=== PATIENT | female | born 1945 | race Caucasian/White ===

== ENCOUNTER 2017-08-09 08:02 | Outpatient (CLI) | payer MEDICARE ==
--- NOTE | 2017-08-09 15:56 | NM ---
NUCLEAR MEDICINE [facility] BRAIN: 08/09/17 HISTORY: 71-year-old female with tremor. TECHNIQUE: 130 mg of potassium iodide injected one hour prior to Ioflupane injection, for thyroid blocking. Nex t, 5.0 mCi I-123 of Ioflupane injected IV. Three hour delayed axial SPECT images obtained. FINDINGS: There is bilaterally symmetrical uptake at the striatum, in both the caudate nuclei and putamen, in a normal pattern. IMPRESSION: Normal scan. Negative for Parkinson disease. POS: [facility]
== END 2017-08-09 08:03 | disposition home or self-care (01) ==
LOC: NM 08:02
PROVIDERS: ATTEND Nurse Practitioner
DX: R25.1 Tremor, unspecified (principal)
CPT/HCPCS: 78607; A9584

== ENCOUNTER 2019-08-07 07:37 | Outpatient (CLI) | payer MEDICARE ==
--- NOTE | 2019-08-07 09:20 | MRI ---
MRI CERVICAL SPINE: DATE: 08/07/2019. COMPARISON: 10/24/2017. HISTORY: Balance problem, uncontrollable right leg twitching. TECHNIQUE: Multiplanar multisequence MR imaging of the cervical spine provided without contrast. FINDINGS: There is mild stable degenerative change at the atlantoaxial interspace. No significant anterolisthesis or retrolisthesis is seen. There is no prevertebral soft tissue swelli ng. C2-3: Mild disc space narrowing, disc desiccation, and disc bulge present. No significant central can al stenosis. There is facet and uncovertebral osteophyte formation on the left, causing mild/moderate left neural foraminal stenosis, new when compared to the prior exam. C3-4: There is disc space narrowing and disc desiccation. Anterior osteophyte formation. Mild disc bu lge. Small left foraminal and left paracentral disc protrusion. Mild central canal stenosis. Superimposed left facet and uncovertebral osteophyte formation. There is associated moderate/severe l eft neural foraminal stenosis, similar when compared to prior examination. Persistent mild right neural foraminal stenosis. C4-5: There is disc space narrowing, disc desiccation, and disc bulge present with effacement of the ventral thecal sac and stable mild/moderate central canal stenosis. Bilateral facet and uncovertebral osteophyte formation noted, left greater than right. Mild right and moderate left neura l foraminal stenosis. C5-6: There is disc space narrowing with disc desiccation and mild stable disc bulge partially effaci ng the ventral thecal sac and causing a mild degree of central canal stenosis. Bilateral facet and uncovertebral osteophyte formation noted with moderate left and mild right neural foraminal stenosis. C6-7: There is disc space narrowing with degenerative endplate change and mild disc bulge partially e ffacing the ventral thecal sac with associated moderate central canal stenosis, similar when compared to prior imaging. Bilateral facet and uncovertebral osteophyte formation noted, left greater than right. Mild bilateral neural foraminal stenosis, left greater than right. C7-T1: No significant central canal or neural foraminal stenosis. No focal area of abnormal signal intensity is identified within the cervical cord. IMPRESSION: Multilevel cervical spine degenerative change as described above. Transcribed Date/Time: 08/07/2019 9:56 AM
--- NOTE | 2019-08-07 09:36 | MRI ---
MRI THORACIC SPINE WITHOUT CONTRAST: DATE: 08/07/2019. COMPARISON: None. HISTORY: Right leg twitching, balance problems. TECHNIQUE: Multiplanar multisequence MR imaging of the thoracic spine is obtained without contrast. FINDINGS: The sagittal STIR imaging demonstrates no focal area of osseous marrow edema. No anterolisthesis or retrolisthesis is evident within the thoracic spine. No significant central canal or neural foraminal stenosis is present at any level within the thoracic spine. There is a very small right paracentral disc protrusion at T4-5 and at T5-6. There is a mild degree of disc bulge at T6-7 causing no central canal stenosis. Small central disc protrusion present at the T8-9 level with no associated central canal stenosis. At the T12-L1 level there is a small right paracentral disc protrusion partially effacing the ventral thecal sac. There is a small caliber thoracic cord syrinx present. It is seen at the T5-6 level through the T8-9 level and measures up to approximately 1-2 mm in transverse dimension. No suspicious osseous marrow signal abnormality. IMPRESSION: Thoracic spine degenerative change as detailed above. Small caliber thoracic cord syrinx as detailed above. As a conservative measure, postcontrast imaging of the thoracic spine is suggested. Transcribed Date/Time: 08/07/2019 9:46 AM
--- NOTE | 2019-08-07 10:09 | MRI ---
MRI LUMBAR SPINE WITH AND WITHOUT CONTRAST: DATE: 08/07/2019. COMPARISON: 03/13/2017. HISTORY: Right leg twitching for 2 years, balance problems. TECHNIQUE: Multiplanar multisequence MR imaging of the lumbar spine is obtained with and without contrast. FINDINGS: The sagittal STIR imaging demonstrates left lateral edematous degenerative endplate change at the lum bosacral junction. No abnormal STIR signal seen within the lumbar spine to suggest a fracture. There is extensive postoperative change at the L3, L4, and L5 levels. No significant anterolisthesis or retrolisthesis is seen within the lumbar spine. On the basis of 5 lumbar type vertebral bodies, the conus medullaris terminates at the L1-2 level. T12-L1: There is a central/right paracentral disc herniation with partial effacement of the ventral t hecal sac and mild associated central canal stenosis. No significant neural foraminal stenosis. This small central/right paracentral disc herniation is new when compared to the prior exam. L1-2: Mild bilateral facet hypertrophy. Minimal disc bulge. No significant central canal or neural fo raminal stenosis. L2-3: Disc desiccation, mild disc space narrowing, and vacuum disc formation present. Prominent bilat eral facet hypertrophy, left greater than right. Mild stable central canal stenosis. Stable mild left-sided neural foraminal stenosis. No significant right neural foraminal stenosis. L3-4: There is disc space narrowing, disc desiccation, and mild disc bulge with a small right paracen tral disc protrusion. The patient is status post bilateral laminectomy. No significant central canal stenosis. There is stable bilateral neural foraminal stenosis, mild on the right and moderate o n the left. L4-5: There is disc space narrowing, disc desiccation, and mild disc bulge, unchanged. There is mild central canal stenosis with associated mild right lateral recess stenosis. Bilateral laminectomy. Bilateral facet hypertrophy and hypertrophy of the ligamentum flavum,, left greater than right. Mild right and mild/moderate left neural foraminal stenosis, similar when compared to the prior examination. L5-S1: Significant bilateral facet hypertrophy. There is disc space narrowing disc desiccation and mi ld disc bulge. There is moderate central canal stenosis, slightly worsened when compared to the prior exam. There is stable mild bilateral neural foraminal stenosis. Postcontrast imaging of the lumbar spine demonstrate no abnormal enhancement involving the nerve root s of the cauda equina. There is no significant abnormal enhancement involving the intervertebral discs or the imaged osseous structures. The imaged retroperitoneal structures demonstrate no acute findings. IMPRESSION: Multilevel postoperative and degenerative change within the lumbar spine as detailed above. Transcribed Date/Time: 08/07/2019 10:23 AM
[2019-08-07] MEDS ORDERED: Gadobenate Dimeglumine 529 MG/1 ML (20ML VIAL) ONE (18:07)
== END 2019-08-07 07:38 | disposition home or self-care (01) ==
LOC: TBSIIMAG 07:37
PROVIDERS: ATTEND Physician Assistant Surgical
DX: M48.061 Spinal stenosis, lumbar region without neurogenic claudication (principal); M54.5 Low back pain; R29.818 Other symptoms and signs involving the nervous system; Z98.890 Other specified postprocedural states; M47.816 Spondylosis without myelopathy or radiculopathy, lumbar region; M47.814 Spondylosis without myelopathy or radiculopathy, thoracic region; M47.812 Spondylosis without myelopathy or radiculopathy, cervical region
CPT/HCPCS: 72141; 72146; 72158; 82565; A9577

== ENCOUNTER 2020-03-14 10:38 | Inpatient (IN) | payer MEDICARE ==
[~2020-03-14 10:38] MED LIST: Amiodarone 150 MG/3 ML VIAL ONE; Atropine Sulfate 1 mg/10 ml Syringe ONE; Calcium Chloride 1 GM/10 ML Abboject SYRINGE ONE; DOPamine/D5W 400 mg/250 ml PREMIX ONE; EPINEPHrine 1 MG/10 ML Abboject SYRINGE ONE; Iopamidol 370 76% 100 ML VIAL ONE; Iopamidol 370 76% 50 ML VIAL FS ONE; Sodium Bicarb 50 MEQ/50 ML Abboject 8.4% SYRINGE ONE
[2020-03-14] MEDS ORDERED: Norepinephrine 8 MG/0.9% NS 250 ML ONE (10:55)
[2020-03-14] MEDS ORDERED: Nitroglycerin 100MG/250ML BOT 0 ML ONE (11:23)
[2020-03-14] MEDS ORDERED: Heparin 10,000 UNITS/1 ML VIAL ONE (11:23)
[2020-03-14] MEDS ORDERED: Aspirin 300 MG Suppository ONE ×2 (11:24)
[2020-03-14] MEDS ORDERED: DOPamine 400 MG/D5W 250 ML 250 ML ONE (11:33)
--- NOTE | 2020-03-14 11:54 | RAD ---
CHEST ONE VIEW: HISTORY: CPR. Endotracheal tube. Enteric tube. COMPARISON: None. FINDINGS: The endotracheal tube tip is poorly seen, although it does appear to project over the right mainstem bronchus. Enteric tube tip, gastric antrum. There is opacification of the right upper lobe. IMPRESSION: 1. Enteric tube tip in good position. 2. Endotracheal tube tip not well seen. May reflect over the right mainstem bronchus. 3. Right upper lobe pulmonary edema. Dr. Garcia was notified of the findings via telephone at 11:30 a.m. CODE CR POS: HOME
[2020-03-14] MEDS ORDERED: EPINEPHrine 1 MG/ML AMP ONE (12:06)
[2020-03-14] MEDS ORDERED: Aggrastat 12.5 MG/250 ML 250 ML ONE (12:06)
[2020-03-14] MEDS ORDERED: Amiodarone 150 MG/3 ML VIAL ONE (12:10)
[2020-03-14] MEDS ORDERED: Sodium Bicarbonate 2.5 MEQ/5 ML VIAL ONE ×4 (12:15→12:45)
[2020-03-14] MEDS ORDERED: Adenosine 6 MG/2 ML VIAL ONE (12:15)
[2020-03-14 12:18] LABS: Actual Bicarbonate (HCO3a) 8.4 mEq/L (22-28); Base Excess (BEa) -26.3 mEq/L (-2.0 to +3.0); CO2 Tension 56.6 mmHg (35.0-45.0); Carboxyhemoglobin (COHb) 0.4 gm% (0.0-3.0); Hemoglobin (Hb) 12.2 g/dL (12.0-16.0); pH, Arterial 6.79 (7.35-7.45)
[2020-03-14 12:19] LABS: Analyzer IN Cardio OR; Calcium, Ionized 1.34 mmol/L (1.12-1.30); Puncture Site LINE
[2020-03-14] MEDS ORDERED: TICAGRELOR 90 MG TABLET PO SCH (12:30)
[2020-03-14] MEDS ORDERED: Aggrastat 12.5 MG/250 ML 250 ML IVPB SCH (12:30)
[2020-03-14 12:42] LABS: Actual Bicarbonate (HCO3a) 10.8 mEq/L (22-28); Base Excess (BEa) -21.6 mEq/L (-2.0 to +3.0); CO2 Tension 55.2 mmHg (35.0-45.0); Calcium, Ionized 1.21 mmol/L (1.12-1.30); Carboxyhemoglobin (COHb) 0.7 gm% (0.0-3.0); Hemoglobin (Hb) 11.1 g/dL (12.0-16.0); Potassium - ABG Lab 4.02 mmol/L (3.70-5.30)
[2020-03-14] MEDS ORDERED: Norepinephrine 8 MG/0.9% NS 250 ML IVPB SCH (12:45)
[2020-03-14] MEDS ORDERED: DOPamine 400 MG/D5W 250 ML 250 ML IVPB SCH (12:45)
[2020-03-14] MEDS ORDERED: Amiodarone 450 MG in Dextrose 5% in Water 250 ML IVPB SCH (12:45)
[2020-03-14 13:07] LABS: O2 Tension (PaO2), arterial 54.4 mmHg (> 70.0); pH, Arterial 6.91 (7.35-7.45)
--- NOTE | 2020-03-14 13:07 | HP ---
REASON FOR ADMISSION: Cardiac arrest. HISTORY OF PRESENT ILLNESS: Ms. Zuniga is a 74-year-old black female patient of Dr. Eron Aparicio, who comes to the ER in [place] for mid back pain. She has spinal problems. She thought this was a problem with her neck or with her thoracic spine. EKG was done that showed some changes consistent with this possible ischemia, so a troponin was drawn and it was mildly elevated, so we were called for transfer for further evaluation and care. Transfer was accepted. When the patient was about to be placed in the ambulance, she had what appears to be a PEA arrest. She braided down and eventually arrested. She was coded briefly, so the helicopter was called and summoned instead. She was placed in the helicopter and flown in emergently. She was coded twice in the air. She arrived in the ER here in [place] and she was coded about 4 more times in the ER. Total time between all the arrests was probably about 45 minutes. After return of spontaneous circulation was achieved, an EKG was done that showed big ST elevations on the inferior leads, so Cardiology was called and STEMI pager was activated. Once she was stable, we brought her to the catheterization lab emergently and we placed a temporary pacemaker, and heart catheterization was done and she had an occluded RCA, and drug-eluting stent was placed successfully. She had several episodes of polymorphic VT during her intervention that were successfully treated with defibrillator shock. She was started on the amiodarone drip. She remains on 3 pressors to maintain her blood pressure with a severely reduced EF. Left-sided circulation was intact, LAD and left circumflex. PAST MEDICAL HISTORY: 1. Hypertension. 2. Hyperlipidemia. 3. Sleep apnea, using CPAP. PAST SURGICAL HISTORY: 1. Appendectomy. 2. Thyroidectomy. 3. Lumbar fusion. 4. Hysterectomy. 5. Cholecystectomy. OUTPATIENT MEDICATIONS: 1. Lasix 40 mg a day. 2. Levothyroxine 100 mcg a day. 3. Estradiol. 4. Turmeric curcumin. 5. L-cysteine. 6. Vitamin D3. 7. Aspirin 81 a day. 8. Paroxetine. 9. CoQ10. 10. Multivitamin. ALLERGIES: NO KNOWN DRUG ALLERGIES. SOCIAL HISTORY: No alcohol, tobacco, or drugs from chart review. FAMILY HISTORY: Noncontributory. REVIEW OF SYSTEMS: Unobtainable as the patient is intubated and unresponsive. PHYSICAL EXAMINATION: VITAL SIGNS: Blood pressure on 3 pressors was 111/52; heart rate at 80, paced; saturating 88% on 100% FiO2; respiratory rate currently at 24, trying to hyperventilate for respiratory acidosis. HEENT: Normocephalic and atraumatic. Pupils are dilated and unresponsive. NECK: Supple. LUNGS: Coarse breath sounds. CARDIOVASCULAR: S1 and S2. No S3 or S4. ABDOMEN: Soft. EXTREMITIES: 1+ edema. SKIN: Warm and dry. LABORATORY DATA: Laboratory work was reviewed, none on the chart. Potassium of 4.0. ABG shows her pH was 6.79, pCO2 was 56, pO2 was 66, O2 saturation was 71. ASSESSMENT: 1. Acute inferior ST-elevation myocardial infarction. 2. Cardiac arrest. 3. Cardiogenic shock. 4. Symptomatic bradycardia. 5. Most likely some level of anoxic brain injury. PLAN: 1. Continue supportive care. 2. Currently on 3 pressors to maintain blood pressure. 3. Drug-eluting stent placed on RCA. She will continue Aggrastat until Brilinta can be loaded with an NG tube. 4. Continue to transcutaneously pace. We will try to wean this off in the next few hours if possible. 5. Continue amiodarone drip as she has had several runs of VT. 6. Prognosis is extremely guarded. 7. Family was updated. 8. Remains full code at this time. Job ID: [id number]
[2020-03-14 13:08] LABS: Puncture Site LINE
[2020-03-14 13:34] LABS: Mean Corpuscular HGB CONC 32.1 g/dL (32.0-36.0); Mean Corpuscular Hemoglobin 33.5 pg (27.0-31.0); Mean Platelet Volume 7.2 fL (7.4-10.4); Platelet Count 178 thou/uL (130-400); RBC Distribution Width 11.9 % (11.5-14.5); Red Blood Cell (RBC) Count 3.27 mill/uL (4.20-5.40); White Blood Cell (WBC) Count 22.9 thou/uL (4.8-10.8)
[2020-03-14 13:37] LABS: INR-International Normal Ratio 2.1; Prothrombin Time 23.7 SEC (12.0-14.7)
[2020-03-14 13:41] LABS: PTT 146.5 SEC (22.9-36.1)
[2020-03-14] MEDS ORDERED: Norepinephrine 16 MG in Dextrose 5% in Water 234 ML IVPB SCH (13:45)
[2020-03-14 13:52] LABS: ALT (SGPT) 326 U/L (8-55); AST (SGOT) 627 U/L (5-34); Albumin 2.7 g/dL (3.4-4.8); Alkaline Phosphatase 92 U/L (40-110); BUN (Urea Nitrogen) 13 mg/dL (9.8-20.1); Bilirubin, Total 0.4 mg/dL (0.2-1.2); CK (CPK) 1215 U/L (29-168); Calc. Creatinine Clearance 0 mL/min (70-130); Calcium 8.8 mg/dL (7.8-10.44); Chloride 107 mmol/L (98-107); Estimated GFR-MDRD 43; Globulin 2.1 g/dL (2.4-3.5); Glucose 389 mg/dL (83-110); Lipase 159 U/L (8-78); Potassium 4.1 mmol/L (3.5-5.1); Protein, Total 4.8 g/dL (6.0-8.3); Sodium 138 mmol/L (136-145)
[2020-03-14 13:57] LABS: Band 10 % (5-11); Carbon Dioxide Less than 8 mmol/L (23-31); Eosinophils 1 % (0-10); Lymphocytes 32 % (21-51); MDiff Complete? YES; Macrocytosis SLIGHT = 6-15 cells (100X) (0-5/hpf); Metamyelocyte 4 % (0-0); Monocytes 2 % (0-10); Myelocyte 2 % (0-0); Neutrophil 48 % (42-75); Platelet Morphology Comment Appears Adequate; Polychromasia SLIGHT = 2-3 cells (100X) (0-2/hpf); Reactive Lymphocytes 1 % (0-10)
[2020-03-14 14:04] LABS: CKMB 133.2 ng/mL (0-6.6)
--- NOTE | 2020-03-14 17:52 | DIS ---
DATE OF ADMISSION: 03/14/2020 DATE OF DISCHARGE: 03/14/2020 HOSPITAL COURSE: Ms. Zuniga came in through the hospital from the [place] ER for an inferior ST-elevation NH. She had been coded for both PA arrest as well as VFib arrest several times about 45 minutes total. She was taken to the catheterization lab emergently, where she had a temporary pacemaker placed as well as an intervention to her right coronary which was completely occluded. She had a drug-eluting stent placed. Hemodynamically, she was compromised throughout the whole procedure, she was hypotensive, we had to escalate pressors to a point where she was on three different pressors and inotropes and her blood pressure was borderline in the 90s over 60s. She was transferred to the ICU where her blood pressure continued to come down. We were unable to get her pH above 6.9 and eventually family decided to withdraw care. Time of was 1354 hours. No autopsy is requested. Job ID: [id number]
[2020-03-14] MEDS ORDERED: Atorvastatin Calcium 40 MG TAB PO SCH (21:00)
[2020-03-15] MEDS ORDERED: TICAGRELOR 90 MG TABLET PO SCH (01:00)
[2020-03-15] MEDS ORDERED: Aspirin Chewable 81 MG TAB PO SCH (09:00)
--- NOTE | 2020-03-17 19:06 | CCL ---
DATE OF SERVICE: 03/14/20 PROCEDURE PERFORMED: Temporary pacemaker placement. SUMMARY: The patient was brought to the Catheterization Lab for bradycardia and after inferior ST elevation ID . She was prepped and draped in the usual sterile fashion. Consents were signed and verified. Timeout was performed. Access was obtained with a 5 Arabic sheath in the right femoral vein with ultrasound guidance. We then advanced a balloon tipped pacer wire to the right ventricle where it was placed conner ccessfully with very good capture. Patient was paced successfully improving hemodynamics. RECOMMENDATIONS: Continue pacing as needed.
--- NOTE | 2020-03-26 16:56 | EKG ---
Test Reason : Blood Pressure : / mmHG Vent. Rate : 041 BPM Atrial Rate : 000 BPM P-R Int : 000 ms QRS Dur : 104 ms QT Int : 494 ms P-R-T Axes : 000 -52 109 degrees QTc Int : 407 ms Junctional bradycardia with occasional Premature ventricular complexes Left axis deviation Low voltage QRS Inferior infarct , possibly acute Anterolateral infarct , possibly acute * ACUTE FL * Consider right ventricular involvement in acute inferior infarct STEMI alert activated Abnormal ECG Confirmed by NAIMA BUTLER M.D. ([id number]), editorial clerk CARI RUBIO ([id number] on 03/26/2020 4:56:21 PM Referred By: Confirmed By:NAIMA BUTLER M.D.
== END 2020-03-14 13:54 | disposition expired | DRG 247 ==
LOC: ERS 10:38 → CCL 11:38 → CCU 11:39
PROVIDERS: ADMIT Internal Medicine Cardiovascular Disease; ATTEND Internal Medicine Cardiovascular Disease
PROC: 027034Z Dilation of Coronary Artery, One Artery with Drug-eluting Intraluminal Device, Percutaneous Approach (ICD-10-PCS; principal; 2020-03-14)
PROC: 02C03ZZ Extirpation of Matter from Coronary Artery, One Artery, Percutaneous Approach (ICD-10-PCS; 2020-03-14)
PROC: 4A023N7 Measurement of Cardiac Sampling and Pressure, Left Heart, Percutaneous Approach (ICD-10-PCS; 2020-03-14)
PROC: B2111ZZ Fluoroscopy of Multiple Coronary Arteries using Low Osmolar Contrast (ICD-10-PCS; 2020-03-14)
PROC: B2151ZZ Fluoroscopy of Left Heart using Low Osmolar Contrast (ICD-10-PCS; 2020-03-14)
PROC: 5A1223Z Performance of Cardiac Pacing, Continuous (ICD-10-PCS; 2020-03-14)
PROC: 3E033XZ Introduction of Vasopressor into Peripheral Vein, Percutaneous Approach (ICD-10-PCS; 2020-03-14)
PROC: 02HV33Z Insertion of Infusion Device into Superior Vena Cava, Percutaneous Approach (ICD-10-PCS; 2020-03-14)
PROC: 0BH17EZ Insertion of Endotracheal Airway into Trachea, Via Natural or Artificial Opening (ICD-10-PCS; 2020-03-14)
PROC: 5A1935Z Respiratory Ventilation, Less than 24 Consecutive Hours (ICD-10-PCS; 2020-03-14)
PROC: 5A12012 Performance of Cardiac Output, Single, Manual (ICD-10-PCS; 2020-03-14)
DX: I21.19 ST elevation (STEMI) myocardial infarction involving other coronary artery of inferior wall (principal); E87.2 Acidosis; I47.2 Ventricular tachycardia; R57.0 Cardiogenic shock; I10 Essential (primary) hypertension; E78.5 Hyperlipidemia, unspecified; I46.2 Cardiac arrest due to underlying cardiac condition; I49.01 Ventricular fibrillation; G47.30 Sleep apnea, unspecified; E03.9 Hypothyroidism, unspecified; I95.9 Hypotension, unspecified; Z99.89 Dependence on other enabling machines and devices; Z90.49 Acquired absence of other specified parts of digestive tract; Z90.710 Acquired absence of both cervix and uterus; Z79.899 Other long term (current) drug therapy; Z79.890 Hormone replacement therapy; Z79.82 Long term (current) use of aspirin
CPT/HCPCS: 36556; 51702; 71045; 76942; 80053; 82550; 82553; 82805; 83690; 83880; 84443; 84484; 85025; 85610; 85730; 92941; 92950; 93005; 93458; 94002; 96365; 96374; 96375; 96376; C1725; C1769; C1887; C9606; J0153; J0171; J0282; J0461; J1265; J1644; J3246; Q9967